=== PATIENT | male | born 1975 | race Caucasian/White ===

== ENCOUNTER 2022-11-25 11:22 | Emergency (ER) | payer OTHER ==
[~2022-11-25] VITALS: Ht 180.3 cm; Wt 77.1 kg
[2022-11-25 11:25] VITALS: BP_SYST 132
--- NOTE | 2022-11-25 11:30 | NUR ---
ER at bedside examining patient.
--- NOTE | 2022-11-25 11:40 | NUR ---
pt presents to ED with report of swelling / pain to lower jaw area. pt is awake, a/o x4 and verbally responsive. no acute distress noted. breathing even and unlabored. pt speaks clear and full sentences. pt resports "i have calcium build up that causes the pain and swelling in my lymph nodes" ice back applied to lower jaw area. [place], safety measures in place.
[2022-11-25] MEDS ORDERED: KETOROLAC TROMETHAMINE 60 MG/2 ML VIAL IM ONE (11:45)
[2022-11-25] MEDS ORDERED: NAPR-1172 PO (11:50)
[2022-11-25] MEDS ORDERED: METR-154 PO ×2 (11:50)
[2022-11-25 12:01] VITALS: BP_SYST 132
--- NOTE | 2022-11-25 12:02 | NUR ---
discharge instructions reviewed with pt by md guardado, pt verbalized understanding and denied questions
== END 2022-11-25 12:02 | disposition home or self-care (01) ==
LOC: SED 11:22
DX: K11.5 Sialolithiasis (principal); R68.84 Jaw pain; Z79.899 Other long term (current) drug therapy
CPT/HCPCS: 99283; 96372; J1885

== ENCOUNTER 2022-11-26 11:25 | Inpatient (IN) | payer OTHER ==
[~2022-11-26] VITALS: Ht 180.3 cm; Wt 79.4 kg
[~2022-11-26 11:25] MED LIST: METR-154 PO; NAPR-1172 PO
[2022-11-26] MEDS ORDERED: MORPHINE 4 MG INJ. 4 MG/ML VIAL IVP ONE (11:45)
[2022-11-26] MEDS ORDERED: ONDANSETRON HCL 4 MG/2 ML VIAL IVP ONE (11:45)
[2022-11-26] MEDS ORDERED: metroNIDAZOLE 500 mg/NS 100 ML IV ONE (11:45)
[2022-11-26] MEDS ORDERED: NACL 0.9% 1,000 ML IV ONE (11:45)
[2022-11-26 12:33] LABS: BASOPHILS % (AUTO) 0.2 % (0.0-2.0); HEMATOCRIT 42.1 % (36-54); HEMOGLOBIN 14.3 g/dL (14.0-18.0); LYMPHOCYTES % (AUTO) 7.7 % (20.5-51.5); MEAN CORPUSCULAR HEMOGLOBIN 29 pg (27-31); MEAN CORPUSCULAR HGB CONC 34 % (32-36); MEAN CORPUSCULAR VOLUME 84 fL (79.0-98.0); MONOCYTES # (AUTO) 0.8 K/uL (0.0-1.0); MONOCYTES % (AUTO) 6.7 % (1.7-9.3); NEUTROPHILS # (AUTO) 10.8 K/uL (1.8-7.7); NEUTROPHILS % (AUTO) 85.4 % (40.0-70.0); PLATELET COUNT (AUTO) 178 K/uL (130-430); RED BLOOD CELL COUNT(AUTO) 5.01 MIL/uL (4.2-6.2); RED CELL DISTRIBUTION WIDTH 13.4 % (9.0-15.0); WHITE BLOOD COUNT (AUTO) 12.6 K/uL (4.8-10.8)
[2022-11-26 12:43] LABS: CALCIUM 8.9 mg/dL (8.4-11.0); CREATININE 1.03 mg/dL (0.55-1.30)
[2022-11-26 12:48] LABS: ALBUMIN 4.1 g/dL (3.4-4.8)
[2022-11-26] MEDS: D5/0.45 NS 1,000 ML IV SCH (16:30)
[2022-11-26 16:38] VITALS: BP_SYST 157
[2022-11-26 16:43] VITALS: BP_SYST 157
[2022-11-26] MEDS ORDERED: ACETAMINOPHEN 325 MG TABLET PO PRN (17:45)
[2022-11-26] MEDS ORDERED: NALOXONE HCL 0.4 MG/ML AMP (NARCAN) IVP PRN ×2 (17:45)
[2022-11-26] MEDS ORDERED: LORazepam 2 MG/ML VIAL IVP PRN (17:45)
[2022-11-26] MEDS ORDERED: ONDANSETRON HCL 4 MG/2 ML VIAL IVP PRN (17:45)
[2022-11-26] MEDS: HYDROcodone/ACETAMIN 10-325 MG TAB PO PRN ×2 (18:37→22:36)
[2022-11-26 19:55] VITALS: BP_SYST 140
[2022-11-26] MEDS ORDERED: metroNIDAZOLE 500 mg/NS 200 ML IV ONE (22:25)
[2022-11-26] MEDS: metroNIDAZOLE 500 mg/NS 100 ML IV SCH (22:35)
[2022-11-27 00:02] VITALS: BP_SYST 139
[2022-11-27] MEDS: D5/0.45 NS 1,000 ML IV SCH ×3 (00:12→21:22)
[2022-11-27] MEDS: metroNIDAZOLE 500 mg/NS 100 ML IV SCH (05:32)
[2022-11-27 06:27] LABS: BASOPHILS % (AUTO) 0.3 % (0.0-2.0); EOSINOPHILS % (AUTO) 0.1 % (0.0-4.0); HEMATOCRIT 39.5 % (36-54); HEMOGLOBIN 13.4 g/dL (14.0-18.0); LYMPHOCYTES # (AUTO) 1.1 K/uL (1.0-5.5); LYMPHOCYTES % (AUTO) 9.9 % (20.5-51.5); MEAN CORPUSCULAR HEMOGLOBIN 29 pg (27-31); MEAN CORPUSCULAR HGB CONC 34 % (32-36); MEAN CORPUSCULAR VOLUME 84 fL (79.0-98.0); MONOCYTES # (AUTO) 0.7 K/uL (0.0-1.0); MONOCYTES % (AUTO) 6.5 % (1.7-9.3); NEUTROPHILS % (AUTO) 83.2 % (40.0-70.0); PLATELET COUNT (AUTO) 166 K/uL (130-430); RED CELL DISTRIBUTION WIDTH 13.1 % (9.0-15.0); WHITE BLOOD COUNT (AUTO) 10.8 K/uL (4.8-10.8)
[2022-11-27 06:55] LABS: ALBUMIN 3.3 g/dL (3.4-4.8); CALCIUM 8.5 mg/dL (8.4-11.0); CREATININE 0.87 mg/dL (0.55-1.30); TOTAL BILIRUBIN 0.9 mg/dL (0.0-1.0)
[2022-11-27 08:00] VITALS: BP_SYST 152
[2022-11-27] MEDS: HYDROcodone/ACETAMIN 10-325 MG TAB PO PRN (08:14)
[2022-11-27 11:38] VITALS: BP_SYST 139
[2022-11-27] MEDS: AMPICILLIN SODIUM/SULBACTAM NA 3 GM in NS 100 ML IV SCH ×2 (14:19→18:20)
[2022-11-27] MEDS: HYDROcodone/ACETAMIN 5-325 MG TAB (NORCO/ VICODIN) PO PRN ×2 (14:19→18:24)
[2022-11-27 16:14] VITALS: BP_SYST 139
[2022-11-27 20:07] VITALS: BP_SYST 140
[2022-11-28] VITALS: BP_SYST 138
[2022-11-28] MEDS: AMPICILLIN SODIUM/SULBACTAM NA 3 GM in NS 100 ML IV SCH ×3 (02:06→12:34)
[2022-11-28] MEDS: D5/0.45 NS 1,000 ML IV SCH (05:38)
[2022-11-28 08:00] VITALS: BP_SYST 144
[2022-11-28 12:00] VITALS: BP_SYST 133
[2022-11-28] MEDS ORDERED: ERTA1VIA3 INJ (12:21)
== END 2022-11-28 13:30 | disposition home health service (06) | DRG 155 ==
LOC: SED 11:25 → OBSVTOIN 13:39 → INTOOBSV 13:39 → SMU 13:39
PROVIDERS: ADMIT Preventive Medicine Preventive Medicine/Occupational Environmental Medicine; ATTEND Internal Medicine
DX: K11.20 Sialoadenitis, unspecified (principal); R65.10 Systemic inflammatory response syndrome (SIRS) of non-infectious origin without acute organ dysfunction; Z20.822 Contact with and (suspected) exposure to COVID-19; K01.1 Impacted teeth; Z79.899 Other long term (current) drug therapy
CPT/HCPCS: 36415; 70490; 76376; 80053; 83605; 85025; 87040; 96361; 96365; 96366; 99285; G0378; J0295; J2270; J2405; J3490